=== PATIENT | male | born 1975 | race Caucasian/White ===

== ENCOUNTER 2019-01-13 20:44 | Emergency (ER) | payer SELFPAY ==
[~2019-01-13] VITALS: Ht 172.7 cm; Wt 68.0 kg
== END 2019-01-13 21:50 | disposition home or self-care (01) ==
LOC: ED 20:44
DX: S93.602A Unspecified sprain of left foot, initial encounter (principal); F17.200 Nicotine dependence, unspecified, uncomplicated; X58.XXXA Exposure to other specified factors, initial encounter
CPT/HCPCS: 73630; 99283